=== PATIENT | female | born 1980 | race Caucasian/White ===

== ENCOUNTER → 2018-01-05 | Outpatient (CLI) | payer MEDICAID ==
[~2018-01-05] MED LIST: PREN-127 PO; PROG200C16 VA
[2018-01-05 15:46] LABS: PLATELET COUNT, AUTOMATED 384 K/uL (150-450)
== END ==
LOC: LAB 14:28
PROVIDERS: ATTEND Obstetrics & Gynecology
DX: Z34.91 Encounter for supervision of normal pregnancy, unspecified, first trimester (principal)
CPT/HCPCS: 36415; 81001; 85025; 86592; 86703; 86762; 86850; 86900; 86901; 87088; 87340

== ENCOUNTER → 2018-01-16 | Outpatient (CLI) | payer MEDICAID ==
[~2018-01-16] MED LIST changes: +FLU60VIA41 IM; +ONDA4TAB97 PO
== END ==
LOC: LAB 09:50
PROVIDERS: ATTEND Student in an Organized Health Care Education/Training Program
DX: Z34.91 Encounter for supervision of normal pregnancy, unspecified, first trimester (principal)
CPT/HCPCS: 87491; 87591

== ENCOUNTER 2018-02-13 00:35 | Emergency (ER) | payer MEDICAID ==
--- NOTE | 2018-02-13 00:40 | ER Report ---
History and Physical Time Seen By MD: 00:40 HPI/ROS CHIEF COMPLAINT: Miscarriage HISTORY OF PRESENT ILLNESS: 31 [id number] female at 10 weeks G5, P2, spontaneous AB 2 began to have heavy vaginal bleeding around 9 PM. She passed a large clump of tissue which she thinks was the fetus. Shortly thereafter she saturated 3 pads in 35 minutes. She became quite syncopal at home. She continued to have heavy blood pouring in the toilet. She discussed this with Dr. Cox on-call [facility] [employer] who advised her to come in for evaluation. Emergency Department the patient had 2 syncopal episodes. While she was ambulated into the emergency department. She noted several clots for passing. REVIEW OF SYSTEMS: Respiratory: No cough, no dyspnea. Cardiovascular: No chest pain, no palpitations. Gastrointestinal: No vomiting, no abdominal pain. Musculoskeletal: No back pain. Allergies: Coded Allergies: amoxicillin (Verified Adverse Reaction, Unknown, neurological s/s, 01/05/18) Home Meds Active Scripts Ondansetron Hcl (ZOFRAN) 4 Mg Tablet, 1 TAB PO Q4-6H PRN for NAUSEA/VOMITING for 30 Days, #180 TAB 1 Refill Prov:LINDSAY COX DO 02/01/18 Ondansetron Hcl (ZOFRAN) 4 Mg Tablet, 1 TAB PO Q4-6H PRN for NAUSEA/VOMITING, #30 TAB 4 Refills Prov:LINDSAY COX DO 01/16/18 Progesterone,Micronized (PROMETRIUM) 200 Mg Capsule, 200 MG VA QHS, #30 CAPSULE 2 Refills Prov:DYLAN ROBERT MD 01/05/18 Reported Medications Vits W-Ca,Fe,Fa(<1MG) ( VITAMINS) 1 Each Tablet, 1 EACH PO DAILY, TAB 01/05/18 Reviewed Nurses Notes: Yes Old Medical Records Reviewed: Yes Smoking Status: Never Smoker Constitutional Vital Sign - Last 24 Hours 02/13/18 02/13/18 02/13/18 02/13/18 00:35 00:43 00:46 01:02 Temp 97.8 Pulse ??? 88 Resp 18 B/P (MAP) 119/78 119/78 (92) 114/61 (78) Pulse Ox 93 O2 Delivery Room Air 02/13/18 02/13/18 02/13/18 02/13/18 01:05 01:09 01:15 01:20 Pulse 67 77 Resp 14 8 B/P (MAP) 109/32 (57) 108/40 (62) 105/41 (62) Pulse Ox 96 98 02/13/18 02/13/18 02/13/18 02/13/18 01:25 01:30 01:35 01:40 Pulse ??? Resp 16 B/P (MAP) 106/76 (86) 114/49 (70) 108/50 (69) 107/62 (77) Pulse Ox 100 02/13/18 02/13/18 02/13/18 02/13/18 01:45 01:48 01:50 02:02 Pulse 75 Resp 13 B/P (MAP) 105/54 (71) 106/73 (84) 107/46 (66) Pulse Ox 92 O2 Flow Rate 2.0 02/13/18 02/13/18 02/13/18 02/13/18 02:05 02:10 02:15 02:20 Pulse 76 85 Resp 13 9 B/P (MAP) 104/56 (72) 109/68 (82) 114/60 (78) 102/61 (75) Pulse Ox 98 98 02/13/18 02/13/18 02/13/18 02/13/18 02:25 02:30 02:35 02:40 Pulse 82 80 Resp 6 10 B/P (MAP) 106/59 (75) 101/71 (81) 100/79 (86) Pulse Ox 96 97 02/13/18 02/13/18 02/13/18 02/13/18 02:45 02:50 02:55 03:00 Pulse 76 Resp 15 B/P (MAP) 109/73 (85) 102/59 (73) 111/70 (84) 109/81 (90) Pulse Ox 95 02/13/18 02/13/18 02/13/18 03:05 03:10 03:15 Pulse ? B/P (MAP) 107/78 (88) Intake and Output 02/12/18 02/12/18 02/13/18 15:00 23:00 07:00 Intake Total 3000 ml Balance 3000 ml Physical Exam General Appearance: The patient is alert, has no immediate need for airway pro tection and no current signs of toxicity. Vital signs stable, afebrile, cool, pale, dry skin HEENT: Pupils equal and round no injection. Respiratory: Chest is non tender, lungs are clear to auscultation. Cardiac: regular rate and rhythm Gastrointestinal: Abdomen is soft and non tender, no masses, bowel sounds normal. Genital: Heavy clots at the vaginal introitus. No ashish bright red bleeding Musculoskeletal: Neck: Neck is supple and non tender. Extremities have full range of motion and are non tender. Skin: No rashes or lesions. DIFFERENTIAL DIAGNOSIS: After history and physical exam differential diagnosis was considered for vaginal bleeding including but not limited to ectopic pregna ncy, menses, miscarriage, and dysfunctional uterine bleeding. Medical Decision Making Data Points Result Diagram: 02/13/18 0238 02/13/18 0110 Laboratory Hematology Test 02/13/18 01:02 02/13/18 01:10 02/13/18 02:38 Prothrombin Time 12.6 seconds (12.0-14.4) Prothromb Time International Ratio 0.94 Activated Partial Thromboplast Time 29 seconds (23-35) Human Chorionic Gonadotropin, Quant 86279 mIU/ml Sodium Level 133 mmol/L (137-145) Potassium Level 4.3 mmol/L (3.5-5.0) Chloride Level 104 mmol/L (98-107) Carbon Dioxide Level 21 mmol/L (22-31) Blood Urea Nitrogen 20 mg/dl (7-18) Creatinine 0.90 mg/dl (0.52-1.04) Glomerular Filtration Rate Calc > 60.0 Random Glucose 157 mg/dl (75-110) Lactate 1.4 mmol/L (0.7-2.1) Calcium Level 8.8 mg/dl (8.4-10.2) Total Bilirubin 0.2 mg/dl (0.2-1.3) Aspartate Amino Transf (AST/SGOT) 15 U/L (0-35) Alanine Aminotransferase (ALT/SGPT) 22 U/L (0-56) Alkaline Phosphatase 81 U/L (0-126) Total Protein 6.5 g/dl (6.3-8.2) Albumin 3.4 g/dl (3.5-5.0) Red Blood Count 4.49 M/uL (4.17-5.56) Mean Corpuscular Volume 84.3 fL (80.0-96.0) Mean Corpuscular Hemoglobin 27.3 pg (26.0-33.0) Mean Corpuscular Hemoglobin Concent 32.4 g/dL (32.0-36.0) Red Cell Distribution Width 14.7 % (11.5-14.5) Mean Platelet Volume 7.3 fL (7.2-11.1) Neutrophils (%) (Auto) 85.2 % (39.4-72.5) Lymphocytes (%) (Auto) 9.4 % (17.6-49.6) Monocytes (%) (Auto) 4.9 % (4.1-12.4) Eosinophils (%) (Auto) 0.4 % (0.4-6.7) Basophils (%) (Auto) 0.1 % (0.3-1.4) Nucleated RBC Relative Count (auto) 0.0 /100WBC Neutrophils # (Auto) 17.9 K/uL (2.0-7.4) Lymphocytes # (Auto) 2.0 K/uL (1.3-3.6) Monocytes # (Auto) 1.0 K/uL (0.3-1.0) Eosinophils # (Auto) 0.1 K/uL (0.0-0.5) Basophils # (Auto) 0.0 K/uL (0.0-0.1) Nucleated RBC Absolute Count (auto) 0.00 K/uL Chemistry Test 02/13/18 01:02 02/13/18 01:10 02/13/18 02:38 Prothrombin Time 12.6 seconds (12.0-14.4) Prothromb Time International Ratio 0.94 Activated Partial Thromboplast Time 29 seconds (23-35) Human Chorionic Gonadotropin, Quant 47947 mIU/ml Glomerular Filtration Rate Calc > 60.0 Lactate 1.4 mmol/L (0.7-2.1) Calcium Level 8.8 mg/dl (8.4-10.2) Total Bilirubin 0.2 mg/dl (0.2-1.3) Aspartate Amino Transf (AST/SGOT) 15 U/L (0-35) Alanine Aminotransferase (ALT/SGPT) 22 U/L (0-56) Alkaline Phosphatase 81 U/L (0-126) Total Protein 6.5 g/dl (6.3-8.2) Albumin 3.4 g/dl (3.5-5.0) White Blood Count 20.9 k/uL (4.5-11.0) Red Blood Count 4.49 M/uL (4.17-5.56) Hemoglobin 12.3 g/dL (12.0-16.0) Hematocrit 37.9 % (34.0-47.0) Mean Corpuscular Volume 84.3 fL (80.0-96.0) Mean Corpuscular Hemoglobin 27.3 pg (26.0-33.0) Mean Corpuscular Hemoglobin Concent 32.4 g/dL (32.0-36.0) Red Cell Distribution Width 14.7 % (11.5-14.5) Platelet Count 304 K/uL (150-450) Mean Platelet Volume 7.3 fL (7.2-11.1) Neutrophils (%) (Auto) 85.2 % (39.4-72.5) Lymphocytes (%) (Auto) 9.4 % (17.6-49.6) Monocytes (%) (Auto) 4.9 % (4.1-12.4) Eosinophils (%) (Auto) 0.4 % (0.4-6.7) Basophils (%) (Auto) 0.1 % (0.3-1.4) Nucleated RBC Relative Count (auto) 0.0 /100WBC Neutrophils # (Auto) 17.9 K/uL (2.0-7.4) Lymphocytes # (Auto) 2.0 K/uL (1.3-3.6) Monocytes # (Auto) 1.0 K/uL (0.3-1.0) Eosinophils # (Auto) 0.1 K/uL (0.0-0.5) Basophils # (Auto) 0.0 K/uL (0.0-0.1) Nucleated RBC Absolute Count (auto) 0.00 K/uL Coagulation Test 02/13/18 01:02 Prothrombin Time 12.6 seconds Prothromb Time International Ratio 0.94 Activated Partial Thromboplast Time 29 seconds EKG/Imaging Imaging Results: Ultrasound of the transvaginal ultrasound was obtained. The results of the study are OB TRANSVAGINAL HISTORY: Vaginal bleeding in early . Patient states she passed a large clot around 10:45 PM. COMPARISON: None. TECHNIQUE: Endovaginal imaging was performed for assessment of the fetus and maternal pelvic structures. FINDINGS: Gestational sac: Not identified. Endometrium is heterogeneous, measuring 19 mm. There is small amount of fluid along the endometrium. Estimated age based on LMP of 12/04/2017: 10 weeks 1 day, corresponding to JULIETH of 01/10/2019. Subchorionic hemorrhage: None visualized. Uterus: Retropositioned. Maternal ovaries and adnexa: Right: The right ovary is not identified. The right adnexum is normal. Left: The left ovary is not identified. The left adnexum is normal. Free pelvic fluid: None. IMPRESSION: 1. No intrauterine gestation is identified. No visible ectopic gestation. Given history of passing a large clot, findings could represent spontaneous miscarriage. Follow-up beta hCG is recommended with follow-up ultrasound as clinically indicated. The study was read by the radiologist. I viewed the images myself on the PACS system. ED Course/Re-evaluation Clinical Indication for ER IV: Hydration, IV Access ED Course Patient was admitted to an examination room. H&P was done. The difficult diagnosis was considered. On clinical examination, patient appears grossly pale. She has syncope in the bed. 2 peripheral IVs were established. Aggressive fluid resuscitation was administered. She was crossmatched for 4 units of blood. View of her medical records show that she is a positive blood type. No indication for RhoGAM. She was treated with Zofran 8 mg IV. Her continued vomiting and dry heaving. Transvaginal ultrasound was ordered. Patient had a quick bimanual examination performed. There were dark clots in the vaginal vault but no ashish bright red bleeding. Dr. Cox was consulted. He advised Cytotec 400 g by mouth. Patient's transvaginal ultrasound showed an empty uterus with a minimal fluid stripe. Evidence of retained products. Patient did get up to the bathroom after ultrasound and passed a clump of tissue that was sent to pathology for further evaluation. A repeat CBC was ordered. At showed no significant drop in H&H. Patient remained stable without ashish vaginal bleeding. 02/13/2018 1:18:[address] Lindsay Cox [facility] [employer] consult at notified of patient's condition. Decision to Disposition Date: Feb 13, 2018 Decision to Disposition Time: 01:16 Depart Departure Latest Vital Signs Vital Signs Date Time Temp Pulse Resp B/P (MAP) Pulse Ox O2 Delivery O2 Flow Rate FiO2 02/13/18 03:15 ??? 02/13/18 03:05 107/78 (88) 02/13/18 02:55 15 95 02/13/18 01:48 2.0 02/13/18 00:43 97.8 Room Air Impression: Primary Impression: Miscarriage Additional Impressions: Syncope Episode of heavy vaginal bleeding Condition: Improved Disposition: HOME OR SELF-CARE Referrals: LINDSAY COX DO (PCP) Patient Instructions: Miscarriage (ED) Additional Instructions: Follow-up with your [facility] [employer] later today or tomorrow. Call and let them know how you're doing Problem Qualifiers Additional Impressions: Syncope Syncope type: unspecified Qualified Codes: R55 - Syncope and collapse NICKOLAS SIDHU DO Feb 13, 2018 00:40
[2018-02-13] MEDS ORDERED: NS(*) 0.9% 1000 ML BAG 1,000 ML IV ONE ×3 (00:44→01:40)
[2018-02-13] MEDS ORDERED: ONDANSETRON 4 MG/2 ML VIAL IVP ONE (00:45)
[2018-02-13] MEDS ORDERED: MISOPROSTOL 200 MCG TAB PO ONE (01:20)
[2018-02-13 01:34] LABS: PLATELET COUNT, AUTOMATED 385 K/uL (150-450)
[2018-02-13 01:52] LABS: INR 0.94
--- NOTE | 2018-02-13 02:34 | RADIOLOGY IMAGING REPORT ---
FACILITY: [facility] - [place] PATIENT NAME: Lida Hamm : 1980 MR: [id number] V: [id number] EXAM DATE: ORDERING PHYSICIAN: NICKOLAS SIDHU TECHNOLOGIST: Location: [facility] - [place] Patient: Lida Hamm : 1980 Visit/Account:[id number] Date of Sevice: 02/13/2018 OB TRANSVAGINAL HISTORY: Vaginal bleeding in early . Patient states she passed a large clot around 10:45 PM. COMPARISON: None. TECHNIQUE: Endovaginal imaging was performed for assessment of the fetus and maternal pelvic struc tures. FINDINGS: Gestational sac: Not identified. Endometrium is heterogeneous, measuring 19 mm. There is small amount of fluid along the endometrium. Estimated age based on LMP of 12/04/2017: 10 weeks 1 day, corresponding to JULIETH of 01/10/2019. Subchorionic hemorrhage: None visualized. Uterus: Retropositioned. Maternal ovaries and adnexa: Right: The right ovary is not identified. The right adnexum is normal. Left: The left ovary is not identified. The left adnexum is normal. Free pelvic fluid: None. IMPRESSION: 1. No intrauterine gestation is identified. No visible ectopic gestation. Given history of passing a large clot, findings could represent spontaneous miscarriage. Follow-up beta hCG is recommended with follow-up ultrasound as clinically indicated. Report Dictated By: Liseth Wilson at 02/13/2018 2:23 AM Report E-Signed By: Liseth Wilson at 02/13/2018 2:30 AM WSN:[id number]
[2018-02-13 02:46] LABS: PLATELET COUNT, AUTOMATED 304 K/uL (150-450)
[2018-02-13 03:05] VITALS: BP 107/78
== END 2018-02-13 03:40 | disposition home or self-care (01) ==
LOC: ER 01:25
DX: O03.9 Complete or unspecified spontaneous abortion without complication (principal); R55 Syncope and collapse; N93.9 Abnormal uterine and vaginal bleeding, unspecified
CPT/HCPCS: 36415; 76817; 83605; 84702; 85025; 85610; 85730; 86850; 86900; 86901; 86920; 88305; 96361; 96374; 99284; J2405; J7030; 82040; 82247; 82310; 82374; 82435; 82565; 82947; 84075; 84132; 84155; 84295; 84450; 84460; 84520

== ENCOUNTER → 2018-06-27 | Outpatient (CLI) | payer MEDICAID ==
[~2018-06-27] MED LIST changes: +RANI-366 PO
--- NOTE | 2018-06-27 14:28 | EKG ---
FACILITY: [facility] PATIENT NAME: REDDY MAC : [id number] MR: [id number] V: [id number] EXAM DATE: ORDERING PHYSICIAN: LINDSAY CASTELAN TECHNOLOGIST: TRUPTI NEGRO Test Reason : CHEST PAIN Blood Pressure : / mmHG Vent. Rate : 074 BPM Atrial Rate : 074 BPM P-R Int : 158 ms QRS Dur : 098 ms QT Int : 414 ms P-R-T Axes : 053 038 039 degrees QTc Int : 459 ms Normal sinus rhythm with sinus arrhythmia Normal ECG No previous ECGs available Confirmed by BIRDIE FOX ([id number]) on 06/28/2018 6:35:27 AM Referred By: Lilly CASTELAN Confirmed By:BIRDIE FOX
[2018-06-27 14:48] LABS: PLATELET COUNT, AUTOMATED 415 K/uL (150-450)
== END ==
LOC: LAB 14:01
PROVIDERS: ATTEND Student in an Organized Health Care Education/Training Program
DX: R00.2 Palpitations (principal); R07.9 Chest pain, unspecified
CPT/HCPCS: 36415; 82040; 82247; 82310; 82374; 82435; 82550; 82565; 82947; 84075; 84132; 84155; 84295; 84443; 84450; 84460; 84484; 84520; 85025